=== PATIENT | male | born 1990 | race Caucasian/White ===

== ENCOUNTER 2017-02-26 12:04 | Emergency (ER) | payer OTHER ==
[~2017-02-26] VITALS: Ht 177.8 cm; Wt 68.0 kg
[2017-02-26 12:23] VITALS: TEMP 36.4; Ht 177.8 cm; Wt 68.0 kg
[2017-02-26] MEDS ORDERED: SODIUM CHLORIDE 0.9% 1000ML 1,000 ML IV STA ×2 (12:28→13:25)
[2017-02-26] MEDS ORDERED: ONDANSETRON INJ 2 MG/ML 2 ML VIAL IV STA (12:29)
[2017-02-26] MEDS ORDERED: KETOROLAC TROMETHAMINE 30 MG/ML VIAL IV STA (12:29)
--- NOTE | 2017-02-26 13:01 | EMERGENCY ROOM VISIT NOTE ---
History Report prepared by Annabel: Jazmyne Lal Under the Supervision of: Dr. Kevin Gr M.D. First contact with patient: 12:28 Chief Complaint: VOMITING Stated Complaint: VOMITING, DEHYDRATION, CRAMPING History of Present Illness The patient is a 26 year old male who presents to the Emergency Room with complaints of persistent vomiting that started 3 days ago. The patient states that he started a new job 4 days ago which involved being out in the heat. He is trying to keep up his fluid intake, but since he has been vomiting it has been difficult for him. The patient is also experiencing abdominal pain which he states is secondary to vomiting. The patient's smokes marijuana, but his mother and fiance do not think that his use is related to his current symptoms. He denies eating any food sources that could lead to food poisoning recently. The patient's fiance states that the patient felt well 4 days ago. Source of History: patient, parent (mother), spouse/significant other ( fiance) Onset: 3 days ago Position: abdomen Quality: other (vomiting) Timing: other (persistent) Associated Symptoms: + nausea, + abdominal pain, No diarrhea Review of Systems See HPI for pertinent positives & negatives. A total of 10 systems reviewed and were otherwise negative. Past Medical & Surgical Medical Problems: (1) No significant past medical history Family History Diabetes mellitus Gallbladder disease Heart disease Hypertension Kidney disease Kidney stones Social History Smoking Status: Former Smoker Alcohol Use: occasionally Drug Use: marijuana Marital Status: in relationship Housing Status: lives with significant other Occupation Status: employed Current/Historical Medications Scheduled Ondasetron Odt (Zofran Odt), 4 MG SL Q6H Allergies Coded Allergies: Amoxicillin (Unverified Adverse Reaction, Intermediate, RASH, 02/26/17) Cefaclor (Unverified Adverse Reaction, Intermediate, RASH, 02/26/17) Clavulanic Acid (Unverified Adverse Reaction, Intermediate, RASH, 02/26/17) Physical Exam Vital Signs Date Time Temp Pulse Resp B/P (MAP) Pulse Ox O2 Delivery O2 Flow Rate FiO2 02/26/17 14:28 80 16 120/73 99 Room Air 02/26/17 12:23 36.4 98 18 123/75 98 Room Air Physical Exam GENERAL: Patient is a healthy-appearing well-nourished male HEAD: Normocephalic atraumatic EYES: Ocular movements intact pupils equal and react to light OROPHARYNX mucous membranes are moist no exudates present no erythema or edema present NECK: Supple no nuchal rigidity CHEST: Good equal expansion LUNGS: Clear and equal to auscultation CARDIAC: Normal S1 and S2 ABDOMEN: Soft nontender no guarding BACK: No CVA tenderness EXTREMITIES: No pain upon palpation normal muscle strength in all groups no clubbing cyanosis or edema NEURO: Patient is following commands and answering questions appropriately. Alert and oriented x3 Cranial Nerves 2-12 grossly intact Medical Decision & Procedures ER Provider Diagnostic Interpretation: Radiology results as stated below per my review and radiologist interpretation: PA CHEST RADIOGRAPH AND UPRIGHT AND SUPINE AP RADIOGRAPHS OF THE ABDOMEN FINDINGS: Lung volumes are normal. Lungs are clear. There is no pneumothorax or pleural effusion. Cardiac size is normal. Mediastinal contours are normal. There is no evidence of pulmonary edema. There is no free air. Bowel gas pattern is normal. There is a moderate amount of stool within the colon. Pelvic calcifications are indeterminate but likely reflect phleboliths. IMPRESSION: 1. No free air or evidence of bowel obstruction. 2. No acute cardiopulmonary findings. 3. Indeterminate pelvic calcifications which statistically reflect phleboliths. Electronically signed by: Juwan Owen M.D. 02/26/2017 2:23 PM Dictated Date/Time: 02/26/2017 2:22 PM Laboratory Results 02/26/17 12:40 Red Blood Count 5.23, Mean Corpuscular Volume 84.3, Mean Corpuscular Hemoglobin 30.6, Mean Corpuscular Hemoglobin Concent 36.3, Mean Platelet Volume 10.2, Neutrophils (%) (Auto) 77.3, Lymphocytes (%) (Auto) 10.9, Monocytes (%) (Auto) 11.1, Eosinophils (%) (Auto) 0.3, Basophils (%) (Auto) 0.2, Neutrophils # (Auto ) 8.47, Lymphocytes # (Auto) 1.19, Monocytes # (Auto) 1.22, Eosinophils # (Auto ) 0.03, Basophils # (Auto) 0.02 02/26/17 12:40 Test 02/26/17 12:40 White Blood Count 10.95 K/uL (4.8-10.8) Red Blood Count 5.23 M/uL (4.7-6.1) Hemoglobin 16.0 g/dL (14.0-18.0) Hematocrit 44.1 % (42-52) Mean Corpuscular Volume 84.3 fL (80-100) Mean Corpuscular Hemoglobin 30.6 pg (25-34) Mean Corpuscular Hemoglobin Concent 36.3 g/dl (32-36) Platelet Count 355 K/uL (130-400) Mean Platelet Volume 10.2 fL (7.4-10.4) Neutrophils (%) (Auto) 77.3 % Lymphocytes (%) (Auto) 10.9 % Monocytes (%) (Auto) 11.1 % Eosinophils (%) (Auto) 0.3 % Basophils (%) (Auto) 0.2 % Neutrophils # (Auto) 8.47 K/uL (1.4-6.5) Lymphocytes # (Auto) 1.19 K/uL (1.2-3.4) Monocytes # (Auto) 1.22 K/uL (0.11-0.59) Eosinophils # (Auto) 0.03 K/uL (0-0.5) Basophils # (Auto) 0.02 K/uL (0-0.2) RDW Standard Deviation 37.9 fL (36.4-46.3) RDW Coefficient of Variation 12.4 % (11.5-14.5) Immature Granulocyte % (Auto) 0.2 % Immature Granulocyte # (Auto) 0.02 K/uL (0.00-0.02) Anion Gap 10.0 mmol/L (3-11) Est Creatinine Clear Calc Drug Dose 64.4 ml/min Estimated GFR () 64.0 Estimated GFR (Non- 55.2 BUN/Creatinine Ratio 18.2 (10-20) Calcium Level 10.0 mg/dl (8.5-10.1) Total Bilirubin 1.0 mg/dl (0.2-1) Direct Bilirubin 0.2 mg/dl (0-0.2) Aspartate Amino Transf (AST/SGOT) 39 U/L (15-37) Alanine Aminotransferase (ALT/SGPT) 44 U/L (12-78) Alkaline Phosphatase 88 U/L (45-117) Total Creatine Kinase 496 U/L (39-308) Total Protein 8.8 gm/dl (6.4-8.2) Albumin 5.1 gm/dl (3.4-5.0) Lipase 78 U/L (73-393) Labs reviewed by ED physician. Medications Administered Medications (Trade) Dose Ordered Sig/[place] Route Start Time Stop Time Status Last Admin Dose Admin Sodium Chloride 1,000 ml @ 999 mls/hr Q1H1M STAT IV 02/26/17 12:28 02/26/17 13:28 DC 02/26/17 13:18 999 MLS/HR Ketorolac Tromethamine (Toradol Inj) 30 mg NOW STAT IV 02/26/17 12:29 02/26/17 12:30 DC 02/26/17 13:20 30 MG Ondansetron HCl (Zofran Inj) 4 mg NOW STAT IV 02/26/17 12:29 02/26/17 12:30 DC 02/26/17 13:20 4 MG Sodium Chloride 1,000 ml @ 999 mls/hr Q1H1M STAT IV 02/26/17 13:25 02/26/17 14:25 DC 02/26/17 14:17 999 MLS/HR ED Course 1228: Ordered Sodium Chloride 1000 ml @ 999 mls/hr IV 1229: Ordered Zofran Inj 4 mg IV, Toradol Inj 30 mg IV 1233: Past medical records reviewed. The patient was evaluated in room B12. A complete history and physical examination was performed. 1325: Ordered Sodium Chloride 1000 ml @ 999 mls/hr IV 1436: Upon reexamination the patient is doing well. I discussed results and treatment plan with the patient. He verbalizes agreement and understanding. The patient is ready for discharge. Medical Decision Differential diagnosis: Etiologies such as gastroenteritis, food borne illness, infections, appendicitis , diverticulitis, inflammatory bowel disease, obstruction, GI bleed, biliary pathology, as well as others were entertained. This is a 26-year-old male who presents emergency department complaining of vomiting. The patient has been working outside for the past several days and has been unable to get his vomiting under control. His creatinine is bumped and the patient does have an elevation in his CK consistent with dehydration. An IV was established, the patient is given normal saline bolus 2. He was also given Zofran in the emergency department. The patient was able to tolerate Gatorade and I do feel he is well enough to be discharged home for follow-up with his primary care physician patient was in agreement with the treatment plan. Medication Reconcilliation Current Medication List: was personally reviewed by me Blood Pressure Screening Patient's blood pressure: Normal blood pressure Impression Primary Impression: Vomiting Additional Impression: Dehydration Scribe Attestation The scribe's documentation has been prepared under my direction and personally reviewed by me in its entirety. I confirm that the note above accurately reflects all work, treatment, procedures, and medical decision making performed by me. Departure Information Dispostion Home / Self-Care Prescriptions Ondasetron Odt (ZOFRAN ODT) 4 Mg Tab 4 MG SL Q6H for Nausea, #6 TAB Prov: Kevin Gr MD 02/26/17 Referrals No Doctor, Assigned (PCP) Forms HOME CARE DOCUMENTATION FORM, IMPORTANT VISIT INFORMATION Patient Instructions ED Dehydration, My [facility], Ondansetron oral dissolving tablet Additional Instructions You have been examined and treated today on an emergency basis only. This is not a substitute for, or an effort to provide, complete comprehensive medical care. It is impossible to recognize and treat all injuries or illnesses in a single emergency department visit. It is therefore important that you follow up closely with your PCP. Call as soon as possible for an appointment. Thank you for your time and consideration. I look forward to speaking with you again soon. Please don't hesitate to call us if you have any questions. Problem Qualifiers Primary Impression: Vomiting Vomiting type: unspecified Vomiting Intractability: unspecified Nausea presence: unspecified Qualified Codes: R11.10 - Vomiting, unspecified
[2017-02-26 13:03] LABS: BASO % 0.2 %; BASO ABS # 0.02 K/uL (0-0.2); COMPLETE YES; EOS % 0.3 %; HEMATOCRIT 44.1 % (42-52); IG% 0.2 %; LYMPH % 10.9 %; LYMPH ABS # 1.19 K/uL (1.2-3.4); MEAN CELL VOLUME 84.3 fL (80-100); MEAN CORPUSCULAR HEMOGLOBIN 30.6 pg (25-34); MEAN CORPUSCULAR HGB CONC 36.3 g/dl (32-36); MEAN PLATELET VOLUME 10.2 fL (7.4-10.4); MONO % 11.1 %; NEUT % 77.3 %; PLATELET COUNT 355 K/uL (130-400); RED BLOOD COUNT 5.23 M/uL (4.7-6.1); WHITE BLOOD COUNT 10.95 K/uL (4.8-10.8)
[2017-02-26 13:20] LABS: BUN/CREATININE RATIO 18.2 (10-20); CREATININE 1.7 mg/dl (0.60-1.40); POTASSIUM 3.8 mmol/L (3.5-5.1)
--- NOTE | 2017-02-26 14:25 | DIAGNOSTIC IMAGING REPORT ---
PA CHEST RADIOGRAPH AND UPRIGHT AND SUPINE AP RADIOGRAPHS OF THE ABDOMEN CLINICAL HISTORY: Vomiting and dehydration. COMPARISON STUDY: No previous studies for comparison. FINDINGS: Lung volumes are normal. Lungs are clear. There is no pneumothorax or pleural effusion. Cardiac size is normal. Mediastinal contours are normal. There is no evidence of pulmonary edema. There is no free air. Bowel gas pattern is normal. There is a moderate amount of stool within the colon. Pelvic calcifications are indeterminate but likely reflect phleboliths. IMPRESSION: 1. No free air or evidence of bowel obstruction. 2. No acute cardiopulmonary findings. 3. Indeterminate pelvic calcifications which statistically reflect phleboliths. Electronically signed by: Juwan Owen M.D. 02/26/2017 2:23 PM Dictated Date/Time: 02/26/2017 2:22 PM
[2017-02-26 14:28] VITALS: BP 120/73; PULSE 80; O2SAT 99
[2017-02-26] MEDS ORDERED: ONDA4TAB10 SL (14:38)
== END 2017-02-26 15:42 | disposition home or self-care (01) ==
LOC: C.EDB 12:09
DX: R11.10 Vomiting, unspecified (principal); E86.0 Dehydration; F12.10 Cannabis abuse, uncomplicated; Z87.891 Personal history of nicotine dependence; Z83.3 Family history of diabetes mellitus; Z82.49 Family history of ischemic heart disease and other diseases of the circulatory system; Z84.1 Family history of disorders of kidney and ureter